=== PATIENT | male | born 1990 | race Caucasian/White ===

== ENCOUNTER 2017-04-04 12:51 | Emergency (ER) | payer OTHER ==
[2017-04-04 13:07] VITALS: BP 99/69; PULSE 105; RESP 16; O2SAT 100
[2017-04-04] MEDS ORDERED: Sodium Chloride 0.9% 1,000 ML IV STA (14:39)
--- NOTE | 2017-04-04 14:47 | ED PDOC ---
HPI: CCC, URI, Sore Throat Time Seen by Provider: 04/04/17 13:05 Chief Complaint (Nursing): Flu-like Symptoms Chief Complaint (Provider): Flu History Per: Patient Additional Complaint(s): 26 yo male, no PMH, presents to ED for evaluation of fever and chills, congestion, cough and nausea. Last took ibuprofen last night, took ibuprofen this morning, 200 mg at 6 am. Vomited this morning. Past Medical History Vital Signs: Last Vital Signs Temp 101.7 F H 04/04/17 13:03 Pulse 105 H 04/04/17 13:03 Resp 16 04/04/17 13:03 BP 99/69 L 04/04/17 13:03 Pulse Ox 100 04/04/17 13:03 - Immunization History Hx Tetanus Toxoid Vaccination: No Hx Influenza Vaccination: No - Home Medications Home Medications: Ambulatory Orders Medication Instructions Recorded Amoxicillin/Clavulanate [Augmentin 1 tab PO BID #13 tab 09/29/14 875 MG-125 MG] Ibuprofen [Motrin Tab] 800 mg PRN PRN 09/29/14 oxyCODONE/Acetaminophen [Percocet 1 tab PO QID PRN #15 tab 09/29/14 5/325 mg Tab] - Allergies Allergies/Adverse Reactions: Allergies Allergy/AdvReac Type Severity Reaction Status Date / Time No Known Allergies Allergy Verified 04/04/17 13:03 - ECG O2 Sat by Pulse Oximetry: 100 Disposition - Disposition Forms: [employer] ([facility])
[2017-04-04 15:11] LABS: BASO % 0.4 % (0.0-2.0); EOS % 0.1 % (0.0-4.0); HEMOGLOBIN 14.2 g/dL (12.0-18.0); LYMPH # 1.3 K/uL (1.0-4.3); LYMPH % 17.7 % (20.0-40.0); MEAN CELL VOLUME 90.4 fl (80.0-94.0); MEAN CORPUSCULAR HEMOGLOBIN 30.7 pg (27.0-31.0); MEAN PLATELET VOLUME 8.4 fl (7.2-11.7); MONO % 13.6 % (0.0-10.0); NEUT # 4.8 K/uL (1.8-7.0); NEUT % 68.2 % (50.0-75.0); NRBC % 0.2 % (0.0-0.0); RBC 4.62 Mil/uL (4.40-5.90); RED CELL DISTRIBUTION WIDTH 13.6 % (11.5-14.5); WHITE BLOOD COUNT 7.1 K/uL (4.8-10.8)
[2017-04-04 15:21] LABS: ALB/GLOB RATIO 1.3 (1.0-2.1); ALBUMIN 4.5 g/dL (3.5-5.0); ALT/SGPT 28 U/L (21-72); AST/SGOT 26 U/L (17-59); BLOOD UREA NITROGEN 12 mg/dl (9-20); GFR AFRICAN-AMERICAN > 60; GFR NON-AFRICAN AMERICAN > 60
[2017-04-04 15:34] LABS: VENOUS BLOOD GAS BASE EXCESS 2.3 mmol/L (0.0-2.0); VENOUS BLOOD GAS PCO2 31 mmHg (40-60); VENOUS BLOOD GAS PO2 26 mm/Hg (30-55); VENOUS BLOOD PH 7.51 (7.32-7.43)
[2017-04-04 16:18] VITALS: TEMP 98.6
--- NOTE | 2017-04-04 16:34 | RAD ---
HISTORY: fever and cough COMPARISON: No prior. TECHNIQUE: Chest PA and lateral FINDINGS: LUNGS: No active pulmonary disease. PLEURA: No significant pleural effusion identified. No pneumothorax apparent. CARDIOVASCULAR: Normal. OSSEOUS STRUCTURES: No significant abnormalities. VISUALIZED UPPER ABDOMEN: Normal. OTHER FINDINGS: None. IMPRESSION: No active disease.
== END 2017-04-04 17:05 | disposition home or self-care (01) ==
LOC: H.ER 12:51
DX: J09.X2 Influenza due to identified novel influenza A virus with other respiratory manifestations (principal)
CPT/HCPCS: 71046; 80053; 82803; 85025; 87040; 87070; 87430; 87804; 99285; J2405; J7040